=== PATIENT | male | born 1935 | race African-American/Black ===

== ENCOUNTER → 2024-02-13 14:33 | Outpatient (REF) | payer MEDICARE, SELFPAY | LOC: HWRAD 14:33 | PROVIDERS: ATTENDING PHYSICIAN Nurse Practitioner Adult Health; FAMILY PHYSICIAN Family Medicine | DX: M48.061 Spinal stenosis, lumbar region without neurogenic claudication (principal); M54.50 Low back pain, unspecified; G89.11 Acute pain due to trauma | CPT/HCPCS: 72110 ==

== ENCOUNTER → 2024-05-15 10:06 | Outpatient (REF) | payer MEDICARE, SELFPAY | LOC: HWRAD 10:06 | PROVIDERS: ATTENDING PHYSICIAN Family Medicine | DX: S32.010D Wedge compression fracture of first lumbar vertebra, subsequent encounter for fracture with routine healing (principal) | CPT/HCPCS: 77080 ==

== ENCOUNTER 2025-01-13 00:42 | Emergency (ER) | payer MEDICARE, SELFPAY ==
[2025-01-13 00:47] VITALS: BP 165/72
[2025-01-13 02:03] VITALS: BMI 26.7
[2025-01-13 02:47] LABS: Urine Albumin 2+ (Neg - Trace); Urine Bilirubin Negative (Negative); Urine Character Clear (Clear); Urine Color Yellow; Urine Glucose Negative (Negative); Urine Ketone Negative (Negative); Urine Leukocyte 3+ (Negative); Urine Nitrite Negative (Negative); Urine Occult Blood Negative (Negative); Urine Specific Gravity 1.005 (<1.030); Urine Urobilinogen Negative (Neg - 1+)
[2025-01-13 02:48] LABS: % Basophils 0.9 % (0-2); % Eosinophils 3.9 % (0-6); % Immature Granulocytes 0.2 % (0-0.5); % Lymphocytes 36.8 % (20.5-51.1); % Monocytes 11.6 % (1.7-9.3); % Neutrophils 46.6 % (42.2-75.2); Absolute Basophils 0.1 10^3/uL (0-0.2); Absolute Eosinophils 0.2 10^3/uL (0-0.7); Absolute Monocytes 0.6 10^3/uL (0.1-0.6); Absolute Neutrophils 2.5 10^3/uL (1.4-6.5); Hematocrit 31.3 % (39.0-52.0); Hemoglobin 10.5 g/dL (13.0-18.0); Mean Corp Hgb Conc. 33.5 g/dL (33.0-37.0); Mean Corpuscular Hgb 33.4 pg (27.0-31.0); Mean Corpuscular Volume 99.7 fL (80.0-94.0); Mean Platelet Volume 11.7 fL (7.4-10.4); Nucleated Red Blood Cells % 0 % (-); Platelet Count 144 10^3/uL (130-400); Red Blood Cell Count 3.14 10^6/uL (4.70-6.10); White Blood Cell Count 5.4 10^3/uL (4.8-10.8)
[2025-01-13 02:50] VITALS: BP 182/82
[2025-01-13 02:57] LABS: Urine Bacteria Moderate (Negative); Urine White Cell 30-40 /HPF (0-5)
[2025-01-13 03:11] LABS: ALT (SGPT) 28 U/L (0-50); AST (SGOT) 26 U/L (17-59); Albumin 4.2 g/dl (3.5-5.0); Alkaline Phosphatase 83 U/L (38-126); Blood Urea Nitrogen 25 mg/dl (9-20); Calcium 10.4 mg/dl (8.4-10.2); Carbon Dioxide 24 mmol/L (22-30); Chloride 102 mmol/L (98-107); Estimated Creatinine Clearance 42 ml/min; Glucose 121 mg/dl (70-99); Potassium 3.8 mmol/L (3.5-5.1); Sodium 135 mmol/L (135-145); Total Bilirubin 1.5 mg/dl (0.2-1.3); Total Protein 7.2 g/dl (6.3-8.2); eGFR 48.65
[2025-01-13] MEDS: APRESOLINE 10 MG IV (03:35)
[2025-01-13 04:09] VITALS: BP 151/53
--- NOTE | 2025-01-13 04:12 | ED.GENMED ---
History of Present Illness
General
Chief Complaint: Blood Pressure Problem
Source: patient and spouse
Time Seen by Provider: 01/13/25 02:44
History of Present Illness
History of Present Illness:
89-year-old male who presents concerned about elevated blood pressures. Has been checking them at home. Does admit he has been feel little bit lightheaded and occasionally have a little tightness across his forehead. Denies true pain. No
vomiting. No chest pain. No shortness of breath. No palpitations
Past History
Past History
ED Past Medical History: Arrthythmia and HTN
Patient has exhibited threatening behavior?: No
Social History
Tobacco: Non-smoker
Alcohol: None
Drug: None
Personal:
Living: with family
Family History
Family History: Hypertension
Phy Exam
Physical Exam
Physical Exam:
CONSTITUTIONAL Patient alert and oriented to person, place and time. Well-appearing. Vital signs reviewed.
HEAD atraumatic, normocephalic.
EYES eyelids normal to inspection, Extraocular muscles intact, Conjunctiva normal, Sclera normal.
NECK normal range of motion, Trachea midline, no jugular venous distention.
RESPIRATORY CHEST No respiratory distress noted, Chest expansion equal, Bilateral breath sounds clear.
CARDIOVASCULAR regular rate and rhythm, Heart sounds normal.
ABDOMEN abdomen nontender, Bowel sounds normal. No distention.
BACK normal inspection, no obvious deformities
UPPER EXTREMITY range of motion normal, Motor strength normal, no cyanosis, no edema.
LOWER EXTREMITY range of motion normal, Motor strength normal, no cyanosis, no edema.
NEURO Speech normal, No focal motor deficits, Michael coma scale 15, Memory normal, Cranial Nerves intact to screening exam.
SKIN skin warm, dry, and normal in color.
Course
Orders/Labs/Results
Orders:
Orders
01/13/25 00:51
Electrocardiogram (*1) Urgent
Reason for Study: Hypertension, Benign
EKG- Treatment ONCE
01/13/25 02:34
Complete Blood Count/With Diff Urgent
Comprehensive Metabolic Panel Urgent
Urinalysis Reflex To Culture Urgent
Date Specimen was Collected: 01/13/25
Time Specimen was Collected: 02:30
Urine Microscopic Reflex Cult Urgent
Urine Culture Urgent
[place] Source: U
Specimen Description:
Date Specimen was Collected: 01/13/25
Time Specimen was Collected: 02:30
01/13/25 03:23
HydrALAZINE [Apresoline] 10 mg IV NOW STA
Abnormal Lab Results
01/13/25
02:34
RBC 3.14 L 10^6/uL
(4.70-6.10)
Hgb 10.5 L g/dL
(13.0-18.0)
Hct 31.3 L %
(39.0-52.0)
MCV 99.7 H fL
(80.0-94.0)
MCH 33.4 H pg
(27.0-31.0)
MPV 11.7 H fL
(7.4-10.4)
Monocytes % 11.6 H %
(1.7-9.3)
BUN 25 H mg/dl
(9-20)
Creatinine 1.4 H mg/dL
(0.7-1.3)
Glucose 121 H mg/dl
(70-99)
Calcium 10.4 H mg/dl
(8.4-10.2)
Total Bilirubin 1.5 H mg/dl
(0.2-1.3)
Leukocyte Esterase Rfl 3+ A
(Negative)
Urine RBC 3-6 A /HPF
(0-2)
Urine WBC (Reflex) 30-40 A /HPF
(0-5)
Urine Bacteria (Reflex) Moderate A
(Negative)
Urine Albumin (Reflex) 2+ A
(Neg - Trace)
01/13/25 02:34
01/13/25 02:34
Vital Signs
Initial and Last Documented VS:
Initial Vital Signs
Temp Pulse Resp BP Pulse Ox
97.8 F 65 20 165/72 98
01/13/25 00:47 01/13/25 00:47 01/13/25 00:47 01/13/25 00:47 01/13/25 00:47
Last Documented Vital Signs
Temp Pulse Resp BP Pulse Ox
97.8 F 71 20 156/76 98
01/13/25 00:47 01/13/25 06:00 01/13/25 06:00 01/13/25 06:00 01/13/25 06:15
MDM/Problems Addressed
MDM/Problems Addressed:
Uncontrolled hypertension
*Pulse Oximetry
Patient hypoxic: no
*EKG
Interpreted by ED Provider?: Yes
Interpretation: abnormal
Rate: normal
Rhythm: sinus
[place]: left axis deviation
Ischemia: non-specific ST changes
*[facility] Interpretation
Rate: normal
Interpretation: normal
Rhythm: sinus
*Critical Care Note
Total Time (30-74mins, 75-104mins- exclusive of procedures): Not Applicable
Data Reviewed
Source: patient and spouse
Patient Management
Escalation/DeEscalation of care consider admission/obs:
Blood pressure improved. Will increase hydralazine and advised outpatient follow-up with his guest services coordinator as per
ED Attending Note
-
Portions of this chart may have been created with voice recognition software.� Occasional wrong word or��sound alike� substitutions may have occurred due to the inherent limitations of voice recognition software.
Discharge Plan
Departure
Patient Disposition: Home (Routine Discharge)
Date of Disposition: 01/13/25
Time of Disposition: 04:13
Patient with high blood pressure during this ER visit?: Yes
Discharge Problem:
Uncontrolled hypertension
Instructions: High Blood Pressure (DC), BLOOD PRESSURE
Prescriptions:
No Action
carvedilol 12.5 MG tablet
12.5 mg PO BID
amlodipine 10 MG tablet
10 mg PO DAILY
doxazosin 4 MG tablet
4 mg PO DAILY
finasteride 5 MG tablet
5 mg PO DAILY
repaglinide 1 MG tablet
2 mg PO DAILY
cyanocobalamin (vitamin B-12) 1,000 MCG tablet
1,000 mcg PO DAILY
multivitamin Tablet
1 tab PO DAILY
eplerenone 50 mg Tablet
50 mg PO BID
cholecalciferol (vitamin D3) [Vitamin D3] 50 mcg (2,000 unit) Capsule
50 mcg PO DAILY
Trelegy Ellipta 100-62.5-25 mcg Blister With Device
1 inh INHALATION DAILY
atorvastatin 40 mg tablet
40 mg PO QPM Qty: 90 10RF
lisinopril 5 mg tablet
5 mg PO DAILY Qty: 90 5RF
Eliquis 5 mg Tablet
5 mg PO BID
Referrals:
UNKNOWN - PT DOES,NOT KNOW [Family Provider] -
Activity Restrictions/Additional Instructions:
Please increase hydralazine to take 50 mg then 25 mg then 50 mg then 25 mg through the day. Please take your hydralazine 4 times a day.. Please continue the rest of your medications and see your guest services coordinator in the next 3 to 5 days for follow-up
and reevaluation. Return today for chest pain, shortness of breath, weakness or any other concerns.
Interventions
Interventions:
*Risk Screen - Suicide Last Done: 01/13/25 00:47
*General Assessment Last Done: 01/13/25 02:03
*Neglect/Abuse Screening Last Done: 01/13/25 00:47
*ED- Fall Risk Assessment Last Done: 01/13/25 02:03
*ED COVID-19 Vaccine History Last Done: 01/13/25 02:03
*Nursing Disposition Last Done: 01/13/25 06:15
ED- Cardiac Assessment Last Done: 01/13/25 02:03
ED- Neurological Assessment Last Done: 01/13/25 02:03
ED- Pulmonary Assessment Last Done: 01/13/25 02:03
Discharge Date and Time
Discharge Date/Time: 01/13/25 06:20
Print Language: SWISS
[2025-01-13 06:00] VITALS: BP 130/54; BP 156/76
== END 2025-01-13 06:20 | disposition home or self-care (01) ==
LOC: EMR 00:42
PROVIDERS: Emergency Medicine; EMERGENCY PHYSICIAN Emergency Medicine
DX: I10 Essential (primary) hypertension (principal); R42 Dizziness and giddiness; Z82.49 Family history of ischemic heart disease and other diseases of the circulatory system
CPT/HCPCS: 99283; 80053; 81003; 81015; 85025; 87086; 93005

== ENCOUNTER → 2025-02-04 06:47 | Outpatient (REF) | payer MEDICARE, SELFPAY | LOC: RAD 06:47 | PROVIDERS: ATTENDING PHYSICIAN Specialist; FAMILY PHYSICIAN Family Medicine | DX: N18.32 Chronic kidney disease, stage 3b (principal); I10 Essential (primary) hypertension | CPT/HCPCS: 93975 ==

== ENCOUNTER → 2025-02-21 08:12 | Outpatient (REF) | payer MEDICARE, SELFPAY | LOC: HWRCS 08:12 | PROVIDERS: ATTENDING PHYSICIAN Internal Medicine Cardiovascular Disease; FAMILY PHYSICIAN Family Medicine | DX: I48.0 Paroxysmal atrial fibrillation (principal) | CPT/HCPCS: 93306 ==